=== PATIENT | female | born 1985 | race Two or more races ===

== ENCOUNTER → 2021-04-12 | Emergency (ER) | payer OTHER | END | disposition left against medical advice (07) | LOC: ER 01:32 | DX: Z53.20 Procedure and treatment not carried out because of patient's decision for unspecified reasons (principal) ==

== ENCOUNTER 2021-11-25 08:45 | Outpatient (CLI) | payer OTHER | END 2021-11-25 08:48 | disposition home or self-care (01) | LOC: RAD 08:45 | PROVIDERS: ATTEND Internal Medicine Rheumatology | DX: M17.0 Bilateral primary osteoarthritis of knee (principal); M22.2X1 Patellofemoral disorders, right knee; M22.2X2 Patellofemoral disorders, left knee ==

== ENCOUNTER 2021-11-26 13:53 | Outpatient (CLI) | payer OTHER | END 2021-11-26 14:08 | disposition home or self-care (01) | LOC: MRI 13:53 | PROVIDERS: ATTEND Orthopaedic Surgery | DX: M25.571 Pain in right ankle and joints of right foot (principal); M25.572 Pain in left ankle and joints of left foot; M25.561 Pain in right knee | CPT/HCPCS: 73718 ==

== ENCOUNTER 2021-12-09 05:50 | Day surgery (SDC) | payer OTHER ==
[~2021-12-09 05:50] MED LIST: LEXAPRO5 MG PO; LYRICA100 MG PO
== END 2021-12-09 14:10 | disposition home or self-care (01) ==
LOC: CIR.AMB 05:50
PROVIDERS: ATTEND Orthopaedic Surgery
DX: M23.221 Derangement of posterior horn of medial meniscus due to old tear or injury, right knee (principal); M22.11 Recurrent subluxation of patella, right knee; M22.41 Chondromalacia patellae, right knee; M12.261 Villonodular synovitis (pigmented), right knee